=== PATIENT | male | born 1990 | race American Indian/Alaskan Native ===

== ENCOUNTER 2020-07-24 09:47 | Emergency (ER) | payer BC ==
[2020-07-24 09:52] VITALS: BP 158/97
--- NOTE | 2020-07-24 10:40 | Emergency Department Report ---
ED General Adult HPI - General Chief complaint: Headache Stated complaint: HEADACHE/EYE PRESSURE/NAUSEA Time Seen by Provider: 07/24/20 10:24 Source: patient Mode of arrival: Ambulatory Limitations: No Limitations - History of Present Illness Initial comments: This very pleasant 29-year-old male who presents the emergency department with chief complaint of facial pressure over his forehead and maxillary area that started this morning. Patient reports there is some associated photosensitivity and nausea and pressure behind his eyes. He states this is worse when he leans forward. The severity is a 7 out of 10. He denies any associated fever, chills, night sweats, dizziness, blurry vision, vomiting, diarrhea, chest pain, shortness of breath or any other associated symptoms. He does report he has a history of frequent headaches and this feels very similar other than the nausea is different. He denies any recent head injury. Denies any neck pain or stiffness. He does report some nasal congestion and pressure in his sinuses. Denies any sick contacts. - Related Data Previous Rx's Medication Instructions Recorded Last Taken Type Amoxicillin/Potassium Clav 1 each PO BID #14 tablet 07/24/20 Unknown Rx [Augmentin 875-125 Tablet] Ondansetron [Zofran Odt] 4 mg PO Q8HR #15 tab.rapdis 07/24/20 Unknown Rx methylPREDNISolone [Medrol 4MG 4 mg PO ONCE #1 tab.ds.pk 07/24/20 Unknown Rx DOSEPAK (21 tabs)] Allergies Allergy/AdvReac Type Severity Reaction Status Date / Time No Known Allergies Allergy Unverified 07/24/20 09:49 ED Review of Systems ROS: Stated complaint: HEADACHE/EYE PRESSURE/NAUSEA Other details as noted in HPI Comment: All other systems reviewed and negative Constitutional: denies: chills, fever Eyes: denies: eye pain, eye discharge, vision change ENT: as per HPI, congestion. denies: ear pain, throat pain Respiratory: denies: cough, shortness of breath, wheezing Cardiovascular: denies: chest pain, palpitations Endocrine: no symptoms reported Gastrointestinal: as per HPI, nausea. denies: abdominal pain, diarrhea Genitourinary: denies: urgency, dysuria Musculoskeletal: denies: back pain, joint swelling, arthralgia Skin: denies: rash, lesions Neurological: as per HPI, headache. denies: weakness, paresthesias Psychiatric: denies: anxiety, depression Hematological/Lymphatic: denies: easy bleeding, easy bruising ED Past Medical Hx - Past Medical History Previous Medical History?: No - Surgical History Past Surgical History?: No - Social History Smoking Status: Never Smoker Substance Use Type: None - Medications Home Medications: Home Medications Medication Instructions Recorded Confirmed Last Taken Type Amoxicillin/Potassium Clav 1 each PO BID #14 tablet 07/24/20 Unknown Rx [Augmentin 875-125 Tablet] Ondansetron [Zofran Odt] 4 mg PO Q8HR #15 tab.rapdis 07/24/20 Unknown Rx methylPREDNISolone [Medrol 4MG 4 mg PO ONCE #1 tab.ds.pk 07/24/20 Unknown Rx DOSEPAK (21 tabs)] ED Physical Exam - General Limitations: No Limitations General appearance: alert, in no apparent distress - Head Head exam: Present: atraumatic, normocephalic - Eye Eye exam: Present: normal appearance, PERRL, EOMI Pupils: Present: normal accommodation - ENT ENT exam: Present: normal exam, normal orophraynx, mucous membranes moist, other (Hyperemia to the nasal turbinates bilaterally with tenderness to percussion to the bilateral frontal and maxillary sinuses) - Neck Neck exam: Present: normal inspection, full ROM. Absent: tenderness, meningismus - Respiratory Respiratory exam: Present: normal lung sounds bilaterally. Absent: respiratory distress, wheezes, rales, rhonchi, stridor, chest wall tenderness - Cardiovascular Cardiovascular Exam: Present: regular rate, normal rhythm, normal heart sounds. Absent: systolic murmur, diastolic murmur, rubs, gallop - GI/Abdominal GI/Abdominal exam: Present: soft, normal bowel sounds, other (Negative McBurney's point tenderness, negative Nieves sign). Absent: distended, tenderness, guarding, rebound, rigid - Rectal Rectal exam: Present: deferred - Extremities Exam Extremities exam: Present: normal inspection, full ROM, normal capillary refill. Absent: tenderness, calf tenderness (Negative Homans' sign bilaterally) - Back Exam Back exam: Present: normal inspection - Neurological Exam Neurological exam: Present: alert, oriented X3, CN II-XII intact, normal gait, other (Normal strength and sensation to the bilateral upper and lower extremities, normal [id number] and [id number], normal gait without ataxia, no focal neurologic deficits.) - Psychiatric Psychiatric exam: Present: normal affect, normal mood - Skin Skin exam: Present: warm, dry, intact, normal color. Absent: rash ED Course Vital Signs 07/24/20 09:49 Temperature 97.6 F Pulse Rate 94 H Respiratory 18 Rate Blood Pressure 158/97 O2 Sat by Pulse 96 Oximetry ED Medical Decision Making - Medical Decision Making Patient is nontoxic in no acute distress. Vital signs are stable other than his blood pressure was mildly elevated. He was educated that he need to have this rechecked and follow-up with a primary care doctor. His exam is consistent with acute sinusitis and tenderness to percussion over the sinuses. The patient's neurologic exam was unremarkable with no focal neurologic deficits. He had no sudden onset of headache this was more of a gradual onset headache making subarachnoid hemorrhage unlikely. He had no neck pain or stiffness with no meningismus on exam making meningitis unlikely. He had no focal neurologic deficits making CVA or TIA unlikely. He had no history of cancer making metastatic or primary tumor unlikely. He was instructed to follow-up with primary care doctor in the next 2 to 3 days and return to the emerge department any changing worsening symptoms. He verbalized understand the diagnosis, treatment plan and follow-up instructions and all his questions were answered. - Differential Diagnosis Sinusitis, migraine headache, cluster headache Critical care attestation.: If time is entered above; I have spent that time in minutes in the direct care of this critically ill patient, excluding procedure time. ED Disposition Clinical Impression: Acute sinusitis Qualifiers: Sinusitis location: frontal Recurrence: non-recurrent Qualified Code(s): J01.10 - Acute frontal sinusitis, unspecified Disposition: DC-01 TO HOME OR SELFCARE Is pt being admited?: No Condition: Stable Instructions: Sinusitis, Adult, [id number], How to Perform a Sinus Rinse Prescriptions: Amoxicillin/Potassium Clav [Augmentin 875-125 Tablet] 1 each PO BID #14 tablet methylPREDNISolone [Medrol 4MG DOSEPAK (21 tabs)] 4 mg PO ONCE #1 tab.ds.pk Ondansetron [Zofran Odt] 4 mg PO Q8HR #15 tab.rapdis Referrals: [facility] [Provider Group] - 3-5 Days Forms: Work/School Release Form(ED) Time of Disposition: 10:41
== END 2020-07-24 10:55 | disposition home or self-care (01) ==
LOC: ED 09:47
DX: J01.90 Acute sinusitis, unspecified (principal); Z79.2 Long term (current) use of antibiotics; Z79.899 Other long term (current) drug therapy
CPT/HCPCS: 99282